=== PATIENT | male | born 1960 | race American Indian/Alaskan Native ===

== ENCOUNTER 2022-01-13 13:39 | Outpatient (CLI) | payer OTHER ==
[2022-01-13 14:08] LABS: Hematocrit 41.7 % (35.5-45.6); Hemoglobin 13.9 gm/dl (11.8-15.2); Mean Corpuscular HGB Conc 33 % (32-34); Mean Corpuscular Volume 85 fl (84-94); Platelet Count 147 K/mm3 (140-440); Red Blood Count 4.93 M/mm3 (3.65-5.03); Red Cell Distribution Width 17.3 % (13.2-15.2)
[2022-01-13 14:23] LABS: INR 1.76 (0.87-1.13)
[2022-01-13 14:24] LABS: Partial Thromboplastin Time 37.1 Sec. (24.2-36.6)
[2022-01-13 14:39] LABS: Alanine Aminotransferase 15 units/L (7-56); Albumin 4.8 g/dL (3.9-5); BUN/Creatinine Ratio 16; Blood Urea Nitrogen 13 mg/dL (9-20); Chol/HDL Ratio 5.29 %; HDL Cholesterol 47 mg/dL (40-59); Hemolysis Index 14; LDL Cholesterol,Direct 170 mg/dL (50-130)
--- NOTE | 2022-01-13 16:04 | XRay Report ---
CHEST 2 VIEWS INDICATION / CLINICAL INFORMATION: I26.99 WHEEZING. COMPARISON: None available. FINDINGS: SUPPORT DEVICES: None. HEART / MEDIASTINUM: The heart size and pulmonary vasculature are normal. LUNGS / PLEURA: No significant pulmonary or pleural abnormality. No pneumothorax. ADDITIONAL FINDINGS: No significant additional findings. IMPRESSION: No acute findings. Signer Name: Manny Ayon MD Signed: 01/13/2022 3:59 PM Workstation Name: [id number]
== END 2022-01-13 13:40 | disposition home or self-care (01) ==
LOC: LAB 13:39
PROVIDERS: ATTEND Internal Medicine
DX: I26.99 Other pulmonary embolism without acute cor pulmonale (principal)
CPT/HCPCS: 36415; 71046; 80053; 80061; 84436; 84443; 85027; 85610; 85730